=== PATIENT | female | born 1930 | race Caucasian/White ===

== ENCOUNTER 2018-12-27 06:44 | Day surgery (SDC) | payer MEDICARE, OTHER ==
[~2018-12-27] VITALS: Ht 160 cm; Wt 61.9 kg
[~2018-12-27 06:44] MED LIST: ASPI81CH PO; ASPI81EC PO; CIPR500; CIPR500 PO; HYDACE5 PO; IBUP800 PO; LO-DOSE ASPIRIN81 MG PO; LORA.5 PO; MECL25 PO; METO25ER PO; METO50 PO; MIRALAX17 GM PO; MULVITA PO; OMEG1CAP30 PO; Toprol Xl50 MG PO; VITAMENS; VITAMINS
== END 2018-12-27 10:20 | disposition home or self-care (01) ==
LOC: ORSCSDS 06:44
PROVIDERS: Podiatrist Foot & Ankle Surgery
PROC: 0SGN04Z Fusion of Left Metatarsal-Phalangeal Joint with Internal Fixation Device, Open Approach (ICD-10-PCS; principal; 2018-12-27 08:30)
DX: M20.12 Hallux valgus (acquired), left foot (principal); I10 Essential (primary) hypertension; I49.9 Cardiac arrhythmia, unspecified; Z79.899 Other long term (current) drug therapy; Z79.82 Long term (current) use of aspirin
CPT/HCPCS: C1713; C1769; J0690; J2370; J2405; J2704; J3010

== ENCOUNTER 2018-12-27 21:22 | Emergency (ER) | payer MEDICARE, OTHER ==
[~2018-12-27] VITALS: Ht 167.6 cm; Wt 63.5 kg
[2018-12-27 22:24] LABS: BASOPHILS ABSOLUTE AUTO 0.06 K/mm3 (0.00-0.23); BASOPHILS PERCENT AUTO 1 % (0-2); EOSINOPHILS ABSOLUTE AUTO 0.04 K/mm3 (0.00-0.68); EOSINOPHILS PERCENT AUTO 0 % (0-6); Hematocrit 39.3 % (33.0-51.0); Hemoglobin 12.8 g/dL (11.5-16.0); IMMATURE GRAN ABSOLUTE AUTO 0.03 K/mm3 (0.00-0.10); IMMATURE GRAN PERCENT AUTO 0 % (0-1); LYMPHOCYTES ABSOLUTE AUTO 1.82 K/mm3 (0.84-5.20); LYMPHOCYTES PERCENT AUTO 20 % (21-46); MONOCYTES ABSOLUTE AUTO 0.96 K/mm3 (0.16-1.47); MONOCYTES PERCENT AUTO 11 % (4-13); Mean Corpuscular HGB 30.8 pg (26.0-34.0); Mean Corpuscular HGB Conc 32.6 g/dL (31.5-36.5); Mean Corpuscular Volume 95 fL (80-100); Mean Platelet Volume 10.7 fL (9.1-12.4); NEUTROPHILS ABSOLUTE AUTO 6.26 K/mm3 (1.96-9.15); NEUTROPHILS PERCENT AUTO 68 % (41-73); Platelet Count 245 K/mm3 (150-400); RDW Coefficient Variation 12.7 % (11.7-14.2); RDW Standard Deviation 44.2 fL (35.1-46.3); Red Blood Cell Count 4.15 M/mm3 (3.80-5.20); White Blood Cell Count 9.17 K/mm3 (4.00-11.30)
[2018-12-27 22:25] LABS: Source, Urine Catheter
[2018-12-27 22:29] LABS: Appearance, Urine Clear (Clear); Bilirubin, Urine Neg (Neg); Blood, Urine Neg (Neg); Color, Urine Pale Yellow (P-Yellow); Glucose Qualitative, Urine Neg (Neg); Ketones, Urine Neg (Neg); Leukocyte Esterase, Urine Neg (Neg); Nitrite, Urine Neg (Neg); Protein, Urine Neg (Neg); Urobilinogen, Urine NORM (Normal)
[2018-12-27 22:32] LABS: Bun/Creatinine Ratio 12.9 (12.0-20.0); Calcium, Blood 9.3 mg/dL (8.5-10.1); Creatinine, Blood 1.01 mg/dL (0.40-1.00); Potassium, Blood 4.2 mmol/L (3.5-5.5)
== END 2018-12-28 00:15 | disposition home or self-care (01) ==
LOC: ER 21:22
PROVIDERS: Emergency Medicine
DX: R33.9 Retention of urine, unspecified (principal); Z88.2 Allergy status to sulfonamides; Z79.899 Other long term (current) drug therapy
CPT/HCPCS: 36415; 51702; 80048; 81003; 85025; 93005; 93010; 96361-59; 96374-59; 99283-25; A9270-GY; J3010; J7030

== ENCOUNTER 2019-05-13 18:45 | Inpatient (IN) | payer MEDICARE, OTHER ==
[~2019-05-13] VITALS: Ht 160 cm; Wt 61.6 kg
[2019-05-13] MEDS ORDERED: Aspir 8181 MG PO (19:42)
[2019-05-13 19:52] LABS: BASOPHILS ABSOLUTE AUTO 0.04 K/mm3 (0.00-0.23); BASOPHILS PERCENT AUTO 1 % (0-2); EOSINOPHILS PERCENT AUTO 0 % (0-6); Hematocrit 38.7 % (33.0-51.0); IMMATURE GRAN ABSOLUTE AUTO 0.02 K/mm3 (0.00-0.10); IMMATURE GRAN PERCENT AUTO 0 % (0-1); LYMPHOCYTES ABSOLUTE AUTO 0.57 K/mm3 (0.84-5.20); LYMPHOCYTES PERCENT AUTO 7 % (21-46); MONOCYTES ABSOLUTE AUTO 0.88 K/mm3 (0.16-1.47); MONOCYTES PERCENT AUTO 10 % (4-13); Mean Corpuscular HGB 31.2 pg (26.0-34.0); Mean Corpuscular HGB Conc 33.6 g/dL (31.5-36.5); Mean Corpuscular Volume 93 fL (80-100); Mean Platelet Volume 10.4 fL (9.1-12.4); NEUTROPHILS ABSOLUTE AUTO 6.92 K/mm3 (1.96-9.15); NEUTROPHILS PERCENT AUTO 82 % (41-73); Platelet Count 249 K/mm3 (150-400); RDW Coefficient Variation 13.1 % (11.7-14.2); RDW Standard Deviation 44.6 fL (35.1-46.3); Red Blood Cell Count 4.17 M/mm3 (3.80-5.20); White Blood Cell Count 8.43 K/mm3 (4.00-11.30)
[2019-05-13 20:10] LABS: International Normalized Ratio 0.92; Prothrombin Time Results 9.8 Sec (9.7-11.5)
[2019-05-13 20:23] LABS: Alanine Aminotransfer (ALT/SGP 21 U/L (12-78); Albumin, Blood 3.4 g/dL (3.4-5.0); Albumin/Globulin Ratio 0.9 (0.8-1.8); Alk Phos 97 U/L (50-136); Anion Gap 3 mmol/L (6-16); Aspartate Aminotrans (AST/SGOT 24 U/L (12-37); Bilirubin, Total 0.6 mg/dL (0.1-1.0); Blood Urea Nitrogen 17 mg/dL (8-24); Bun/Creatinine Ratio 25.7 (12.0-20.0); CO2, Blood 27 mmol/L (21-32); Calcium, Blood 9.3 mg/dL (8.5-10.1); Chloride, Blood 109 mmol/L (98-108); Creatinine, Blood 0.66 mg/dL (0.40-1.00); Globulin, Blood 3.7 g/dL (2.2-4.0); Glomerular Filtration Rate >60 (60-); Glucose, Blood 132 mg/dL (70-99); Potassium, Blood 3.7 mmol/L (3.5-5.5); Sodium, Blood 139 mmol/L (136-145); Total Protein, Blood 7.1 g/dL (6.4-8.2)
[2019-05-13 21:07] LABS: Source, Urine Catheter
[2019-05-13 21:11] LABS: Bilirubin, Urine Neg (Neg); Blood, Urine 3+ (Neg); Glucose Qualitative, Urine Neg (Neg); Ketones, Urine Neg (Neg); Leukocyte Esterase, Urine 3+ (Neg); Nitrite, Urine Neg (Neg); Protein, Urine 2+ (Neg); Specific Gravity, Urine 1.015 (1.003-1.022); Urobilinogen, Urine NORM (Normal)
[2019-05-13 21:18] LABS: Appearance, Urine Hazy (Clear); Color, Urine Yellow (P-Yellow)
[2019-05-13 21:19] LABS: White Blood Cells, Urine TNTC /hpf (0-5)
[2019-05-13 21:21] LABS: Bacteria Many /hpf; Squamous Epithelial Cells Few /hpf (Few)
[2019-05-13] MEDS ORDERED: Fish Oil 10001000 MG PO (21:56)
[2019-05-13] MEDS ORDERED: Vitamin D2000 UNIT PO (21:56)
--- NOTE | 2019-05-13 22:14 | NUR ---
transfer report from [facility] on 88 year old PT being admitted to DR Drake with UTI , URI and fever. HX of cardiac ablation will be on Tele monitor . reportedly lives alone, recent travel to [facility]. Green sputum UTI despite tx EColi UTI 04/25/19. Await admission .
[2019-05-13] MEDS ORDERED: MIRALAX17 GM PO (23:06)
[2019-05-13] MEDS ORDERED: AKWA Tears15 ML BOTHEYES (23:09)
[2019-05-13] MEDS ORDERED: NAPR220 PO (23:10)
--- NOTE | 2019-05-14 02:35 | NUR ---
88 year old Female who has recent EColi uti 04/25/19 UA with C & S completed oral antibiotics to treat. She has recent travel to [facility] and [place] and felt fine during travel. She felt ill and had productive cough and temp 101.4 at ER after going to urgent care to be examined. She lives independent has adult children supportive in area. She drives and may use walking stick but has weakness and SOB. Oxygen 2 l nc and hacking harsh cough. Dr Drake PT PT on tel SR with 1st degree AV block. 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 She is on IV fluids at 75 ml HR. Full code status verified.
[2019-05-14 09:48] LABS: Adenovirus Not Detected (NOT DETECT); Bordetella pertussis Not Detected (NOT DETECT); Chlamydophila pneumoniae Not Detected (NOT DETECT); Coronavirus 229E Not Detected (NOT DETECT); Coronavirus HKU1 Not Detected (NOT DETECT); Coronavirus NL63 Not Detected (NOT DETECT); Coronavirus OC43 Not Detected (NOT DETECT); Human Metapneumovirus Not Detected (NOT DETECT); Human Rhinovirus/Enterovirus Detected (NOT DETECT); Influenza A Not Detected (NOT DETECT); Influenza A/2009-H1 Not Detected (NOT DETECT); Influenza A/H1 Not Detected (NOT DETECT); Influenza A/H3 Not Detected (NOT DETECT); Influenza B Not Detected (NOT DETECT); Mycoplasma pneumoniae Not Detected (NOT DETECT); Parainfluenza Virus 1 Not Detected (NOT DETECT); Parainfluenza Virus 2 Not Detected (NOT DETECT); Parainfluenza Virus 3 Not Detected (NOT DETECT); Parainfluenza Virus 4 Not Detected (NOT DETECT); Respiratory Syncytial Virus Not Detected (NOT DETECT)
--- NOTE | 2019-05-14 18:15 | NUR ---
SHIFT SUMMARY MULTIPLE FRIENDS AND FAMILY TO VISIT TODAY. [employer] STANDBY ASSIST WITH BRP. C/O RIB PAIN DUE TO COUGHING. PAIN MEDICATION GIVEN AND EFFECTIVE. BOWEL CARE STARTED TODAY. REFUSED PREVNAR. TELE NSR. ROOM AIR. PLEASANT CALM. GOOD URINE OUTPUT TODAY.
--- NOTE | 2019-05-15 00:33 | NUR ---
PATIENT STATING HIGH 80'S PER RT AND WAS PUT BACK ON 2L O2 NC.
--- NOTE | 2019-05-15 03:43 | NUR ---
SHIFT SUMMARY PATIENT HAD NO ACUTE CHANGES OBSERVED. AXOX 3 AND SBA TO BSC. RT PUT PATIENT ON 2L O2 NC AFTER STATING IN THE HIGH 80'S. BREATHING TX BY RT. OUT OF DROPLET PRECAUTIONS. PIV REMAINS INTACT. IV ABX INFUSED. INSTRUCTIONAL SUPPORT ASSISTANT REPORTED ST 111 W/1ST DEGREE. DAUGHTER PRESENT FIRST PART OF SHIFT. REPORTED BILATERAL RIB PAIN FROM COUGH AND RECEIVED 0.5 TAB OF NORCO 5/325 PER EMAR. CALL LIGHT IN REACH. BED IN LOWEST POSITION. WILL CONTINUE TO MONITOR UNTIL DAY SHIFT NURSE ASSUMES CARE.
--- NOTE | 2019-05-15 10:40 | NUR ---
Pt resting in bed upon arrival and reports a tolerable 4/10 pain in her rib when coughing. Pt reports mild dyspnea as well but states oxygen is helping. Raised head of bed and instructed on splinting when coughing. Pt and daughter report completing advanced directive. Answered questions and educated on sections to complete. Pt and daughter report understanding of life sustaining measures and request a notary. Called and left message with Shazia requesting notary for Pt. Other notary Ene not available today. Spoke with bedside nurse Melissa and discussed case. Palliative Care will remain available.
[2019-05-15 15:14] LABS: BASOPHILS ABSOLUTE AUTO 0.04 K/mm3 (0.00-0.23); BASOPHILS PERCENT AUTO 0 % (0-2); EOSINOPHILS PERCENT AUTO 0 % (0-6); Hematocrit 34.2 % (33.0-51.0); Hemoglobin 11.3 g/dL (11.5-16.0); IMMATURE GRAN ABSOLUTE AUTO 0.03 K/mm3 (0.00-0.10); IMMATURE GRAN PERCENT AUTO 0 % (0-1); LYMPHOCYTES ABSOLUTE AUTO 0.77 K/mm3 (0.84-5.20); LYMPHOCYTES PERCENT AUTO 8 % (21-46); MONOCYTES PERCENT AUTO 9 % (4-13); Mean Corpuscular Volume 94 fL (80-100); Mean Platelet Volume 10.9 fL (9.1-12.4); NEUTROPHILS ABSOLUTE AUTO 7.85 K/mm3 (1.96-9.15); NEUTROPHILS PERCENT AUTO 82 % (41-73); Platelet Count 230 K/mm3 (150-400); RDW Coefficient Variation 13.2 % (11.7-14.2); RDW Standard Deviation 46.2 fL (35.1-46.3); Red Blood Cell Count 3.64 M/mm3 (3.80-5.20); White Blood Cell Count 9.59 K/mm3 (4.00-11.30)
[2019-05-15 15:30] LABS: Anion Gap 6 mmol/L (6-16); Blood Urea Nitrogen 9 mg/dL (8-24); Bun/Creatinine Ratio 17.3 (12.0-20.0); CO2, Blood 27 mmol/L (21-32); Calcium, Blood 8.6 mg/dL (8.5-10.1); Chloride, Blood 106 mmol/L (98-108); Creatinine, Blood 0.52 mg/dL (0.40-1.00); Glomerular Filtration Rate >60 (60-); Glucose, Blood 142 mg/dL (70-99); Potassium, Blood 4.5 mmol/L (3.5-5.5); Sodium, Blood 139 mmol/L (136-145)
--- NOTE | 2019-05-15 18:28 | NUR ---
PATIENT HAS BEEN ENCOURAGED TO KEEP FLUIDS UP THIS SHIFT SHE HAS NOT WANTED TO EAT. PATIENT ON 2 L O2 AND CONTINUES WITH STRIDOR COUGH. NOT BEEN ABLE TO COUGH UP SAMPLE REQUESTED. DAUGHTERS AT BEDSIDE. PATIENT ENCOURAGED AND ABLE TO SIT IN CHAIR WHICH SEEMED TO HELP WITH COUGHING. NO PAINMEDS GIVEN. PATIENT IS ALERT AND ABLE TO EXPRESS ANY NEEDS. CALL LIGHT WITHIN REACH.
--- NOTE | 2019-05-16 03:34 | NUR ---
SHIFT SUMMARY PATIENT HAD NO ACUTE CHANGES. AXOX 3 AND SBA TO BR. FAMILY PRESENT T/O SHIFT. ON 2L O2 N/C. RT IN FOR BREATHING TX. PATIENT REPORTED COUGH X 2 AND TESSALON 100 MG GIVEN PER EMAR. ARCE X ONE AND TYLENOL GIVEN PRN. REPORTED RIB PAIN FROM COUGH AND HALF TAB OF NORCO GIVEN PRN. FAMILY/PATIENT REPORTED HER TO STAY IN CHAIR TO SLEEP WITH LIMITED RESULTS. VSS/AFEBRILE. CALL LIGHT IN REACH. BED IN LOWEST POSITION. WILL CONTINUE TO MONITOR UNTIL DAY SHIFT NURSE ASSUMES CARE.
[2019-05-16 06:28] LABS: BASOPHILS ABSOLUTE AUTO 0.04 K/mm3 (0.00-0.23); BASOPHILS PERCENT AUTO 1 % (0-2); EOSINOPHILS ABSOLUTE AUTO 0.02 K/mm3 (0.00-0.68); EOSINOPHILS PERCENT AUTO 0 % (0-6); Hematocrit 32.4 % (33.0-51.0); Hemoglobin 10.6 g/dL (11.5-16.0); IMMATURE GRAN ABSOLUTE AUTO 0.02 K/mm3 (0.00-0.10); IMMATURE GRAN PERCENT AUTO 0 % (0-1); LYMPHOCYTES PERCENT AUTO 10 % (21-46); MONOCYTES ABSOLUTE AUTO 0.76 K/mm3 (0.16-1.47); MONOCYTES PERCENT AUTO 10 % (4-13); Mean Corpuscular HGB 30.5 pg (26.0-34.0); Mean Corpuscular HGB Conc 32.7 g/dL (31.5-36.5); Mean Corpuscular Volume 93 fL (80-100); Mean Platelet Volume 11.3 fL (9.1-12.4); NEUTROPHILS ABSOLUTE AUTO 6.36 K/mm3 (1.96-9.15); NEUTROPHILS PERCENT AUTO 79 % (41-73); Platelet Count 227 K/mm3 (150-400); RDW Coefficient Variation 13.3 % (11.7-14.2); RDW Standard Deviation 45.2 fL (35.1-46.3); Red Blood Cell Count 3.47 M/mm3 (3.80-5.20)
[2019-05-16 06:38] LABS: Albumin, Blood 2.6 g/dL (3.4-5.0); Anion Gap 5 mmol/L (6-16); Blood Urea Nitrogen 7 mg/dL (8-24); Bun/Creatinine Ratio 11.7 (12.0-20.0); CO2, Blood 27 mmol/L (21-32); Calcium, Blood 8.6 mg/dL (8.5-10.1); Chloride, Blood 107 mmol/L (98-108); Glomerular Filtration Rate >60 (60-); Glucose, Blood 109 mg/dL (70-99); Phosphorus, Blood 3.1 mg/dL (2.5-4.9); Potassium, Blood 4.3 mmol/L (3.5-5.5); Sodium, Blood 139 mmol/L (136-145)
[2019-05-16 09:36] LABS: Percent Saturation 22.8 % (15.0-50.0)
[2019-05-16 14:44] LABS: Stool Occult Blood Guaiac 1 Neg (Neg)
--- NOTE | 2019-05-16 14:53 | NUR ---
Visited with pt and her dtr this afternoon as a follow up to PC nurse visit yesterday re: AD. Pt has filled out AD and signed in the presence of two non-family member witnesses. Pt is waiting for another dtr to sign the form and then they will have staff copy AD for her EMR. Pt reports not being able to lay flat to sleep yet. Also c/o coughing at night which doesn't allow her to rest. Reviewed EMAR and educated pt on new order for tessalon perles which is scheduled to start this afternoon. Pt education given. Will recheck pt tomorrow to see if the med change helps her to sleep tonight. May consider alternate anti-tussive therapy if tessalon perles do not work for her. Encouraged PO fluid intake to thin secretions. No further questions at this time. Pt sitting up in chair and states she feels better than she did yesterday.
--- NOTE | 2019-05-16 16:50 | NUR ---
PATIENT DOING MUCH BETTER TODAY THAN PREVIOUS SHIFT. SHE HAS BEEN UP WALKING THE HALLS WITH FAMILY. APPETITE HAS IMPROVED AND SHE IS TAKING IN MORE FLUIDS PO. HER COUGH HAS LESSENED GREATLY AND HER ATTITUDE HAS IMPROVED. SHE IS ABLE TO COMMUNICATE HER NEEDS AND USES CALL LIGHT APPROPRIATLEY. PATIENT IS CONTINENT OF BB. NO SKIN BREAKDOWN NOTED. PATIENT HAS LESS COUGHING EPISODES WHEN UPRIGHT IN CHAIR. FAMILY PRESENT.
--- NOTE | 2019-05-17 03:42 | NUR ---
SHIFT SUMMARY PT IS ALERT ORIENTED AND INDEPENDENT IN THE ROOM SO LONG FAMILY IS PRESENT. PT'S O2 DESATTED TO HIGH 80S, AND 2L NC WAS APPLIED. PT ALSO HAS PERSISTENT COUGH. THIS RN POST VOID BLADDER SCANNED THE PT AND FOUND OVER 700ML RETAINED. PT WAS STRAIGHT CATHED AND 1000ML WAS REMOVED. PT DIDN'T COMPLAIN OF URINARY DISCOMFORT THROUGHOUT. NO OTHER COMPLAINTS AT THIS TIME. WILL CONITNUE TO MONITOR.
--- NOTE | 2019-05-17 12:20 | NUR ---
Met with pt this morning. She is awake and states that she did not sleep well again last night with the cough medication that was added yesterday. She reports that the doctor visited this morning and is planning to add a different cough medicine that will also help her sleep. AD was signed by daughters, pt and witnesses yesterday. Copy of her AD made for her chart. Will send to MR for scanning into the EMR. No other complaints at this time. She is sitting up in her bed eating lunch during the time of my visit.
--- NOTE | 2019-05-17 18:35 | NUR ---
SHE TRIED TO VOID LATE MORNING WHEN ASKED. SHE DID NOT HAVE THE INKLING TO GO. SHE COULD NOT. BLADDER SCAN AT THAT TIME WAS JUST OVER 500. LATER SHE VOIDED WHEN I ASKED HER TO TRY. SHE VOIDED 400 MLS THEN BLADDER SCAN SHOWED 626 MLS[address] I SOON AFTER ST. CATHED HER FOR 675 MLS. SHE WAS DISCOURAGED. SHE HAS HAD A COUGH ALL DAY. IT IS NON-PRODUCTIVE. CONSULTED ON HER. ROBITUSSEN WITH CODEINE WAS ORDERED. I DO THINK IT HAS CALMED HER COUGH A BIT. O2 WAS AT 2L, LATER OFF FOR ABOUT 5 HRS, THEN RESUMED WHEN HER SAT FELL TO 87-89%. SHE HAS C/O HEARTBURN TODAY WITH EATING. ORDERED PRILOSEC SCHEDULED AND TUMS PRN. PRILOSEC, FLOMAX AND PREDNISONE STARTED THIS SHIFT. TELE NSR WITH 1ST DEGREE BLOCK. CXR DONE AND SHE HAS BEEN AFEBRILE. SHE HAD A BM THIS AM AND HAS REMAINED IN DROPLET ISOLATION FOR RHINO VIRUS.
--- NOTE | 2019-05-18 05:47 | NUR ---
SHIFT SUMMARY PT IS ALERT, ORIENTED AND INDEPENDENT. 2 L NC WAS APPLIED TO PT EARLY IN THE SHIFT DUE TO A O2 SATURATION OF 87%. PT HAD AN EPISODE OF SOB AFTER WAKING UP FROM A DEEP SLEEP. PT'S VS WERE STABLE THROUGHOUT. A BREATHING TREATMENT WAS GIVEN AND PT'S BREATHING IMPROVED. LUNGS STILL HAVE RHONCHI AND EXP WHEEZES IN THE LOWER BASES HOWEVER. PT WAS BLADDER SCANNED THROUGHOUT SHIFT. PT MET THE CRITERIA FOR STRAIGHT CATH ONCE AND 950ML WAS REMOVED. CURRENTLY PT IS SITTING UP IN THE CHAIR WITHOUT DISTRESS, WEARING 2 L NC. NO CURRENT COMPLAINTS. WILL CONTINUE TO MONITOR.
--- NOTE | 2019-05-18 08:39 | NUR ---
SHE IS UP IN THE CHAIR FOR BREAKFAST.
--- NOTE | 2019-05-18 13:52 | NUR ---
SHE HAS TRIED TO VOID X2 BUT WAS UNABLE. BLADDER SCAN SHOWS 599 MLS. SHE HAS RECEIVED A SECOND DOSE OF COUGH SYRUP THIS SHIFT AND IS TRYING TO TAKE A NAP NOW. SHE HAS NEEDED HER O2 TODAY. I HAD HER AMBULATE ON RA WITH A BIOX ON. SHE WAS 86 TO 89%. I LET HER KNOW SHE WILL NEED TO AMBULATE WITH O2 IN THE FUTURE. HER DAUGHTER HAS GONE HOME. I WILL F/U ON HER BLADDER RETENTION THIS AFTERNOON.
--- NOTE | 2019-05-18 15:08 | NUR ---
ROUNDED ON HER. SHE IS CURRENTLY ASLEEP.
--- NOTE | 2019-05-18 18:23 | NUR ---
ROUNDED AGAIN LATE THIS AFTERNOON. ORDER RECEIVED TO PLACE QUIROS CATHETER. HER BLADDER WAS EMPTIED BY ST.CATH AT 1615 SHORTLY BEFORE HE ARRIVED. WILL PASS ON TO DOUGH MIXING MACHINE OPERATOR TO PLACE QUIROS THIS EVENING. HER FEW ATTEMPTS TODAY TO VOID WERE UNSUCCESSFUL. SHE AMBULATED THE BISHOP AND WILL AGAIN WHEN SHE FINISHES DINNER, THIS TIME WITH O2. IT IS AT 1L CURRENTLY. COUGH MEDICINE GIVEN X3 TODAY,TUMS X1, AND HYDROCODONE X1. DROPLET ISOLATION CONTINUES FOR RHINO VIRUS. MSG LEFT FOR INFECTION CONTROL TOMORROW TO LOOK INTO THE POLICY.
--- NOTE | 2019-05-19 04:20 | NUR ---
SHIFT SUMMARY PT HAD A DECENT SHIFT. PT WORE 1L NC WHEN AT REST AND TOLERATED IT WELL. PT TOLERATED QUIROS INSERTION WELL. BREATHING TREATMENTS AND PRN MEDS WERE GIVEN NEEDED. NO OTHER COMPLAINTS AT THIS TIME. WILL CONTINUE TO MONITOR.
[2019-05-19 06:47] LABS: BASOPHILS ABSOLUTE AUTO 0.01 K/mm3 (0.00-0.23); BASOPHILS PERCENT AUTO 0 % (0-2); EOSINOPHILS PERCENT AUTO 0 % (0-6); Hematocrit 32.5 % (33.0-51.0); Hemoglobin 10.4 g/dL (11.5-16.0); IMMATURE GRAN ABSOLUTE AUTO 0.19 K/mm3 (0.00-0.10); IMMATURE GRAN PERCENT AUTO 2 % (0-1); LYMPHOCYTES ABSOLUTE AUTO 1.28 K/mm3 (0.84-5.20); LYMPHOCYTES PERCENT AUTO 15 % (21-46); MONOCYTES ABSOLUTE AUTO 0.77 K/mm3 (0.16-1.47); MONOCYTES PERCENT AUTO 9 % (4-13); Mean Corpuscular HGB 30.1 pg (26.0-34.0); Mean Corpuscular Volume 94 fL (80-100); Mean Platelet Volume 10.4 fL (9.1-12.4); NEUTROPHILS ABSOLUTE AUTO 6.23 K/mm3 (1.96-9.15); NEUTROPHILS PERCENT AUTO 74 % (41-73); Platelet Count 262 K/mm3 (150-400); RDW Coefficient Variation 13.4 % (11.7-14.2); RDW Standard Deviation 45.9 fL (35.1-46.3); Red Blood Cell Count 3.45 M/mm3 (3.80-5.20); White Blood Cell Count 8.48 K/mm3 (4.00-11.30)
[2019-05-19 07:03] LABS: Alanine Aminotransfer (ALT/SGP 67 U/L (12-78); Albumin, Blood 2.5 g/dL (3.4-5.0); Albumin/Globulin Ratio 0.8 (0.8-1.8); Alk Phos 87 U/L (50-136); Anion Gap 5 mmol/L (6-16); Aspartate Aminotrans (AST/SGOT 63 U/L (12-37); Bilirubin, Total 0.1 mg/dL (0.1-1.0); Blood Urea Nitrogen 18 mg/dL (8-24); Bun/Creatinine Ratio 28.8 (12.0-20.0); CO2, Blood 27 mmol/L (21-32); Calcium, Blood 8.8 mg/dL (8.5-10.1); Chloride, Blood 108 mmol/L (98-108); Creatinine, Blood 0.63 mg/dL (0.40-1.00); Globulin, Blood 3.2 g/dL (2.2-4.0); Glomerular Filtration Rate >60 (60-); Glucose, Blood 108 mg/dL (70-99); Potassium, Blood 4.4 mmol/L (3.5-5.5); Sodium, Blood 140 mmol/L (136-145); Total Protein, Blood 5.7 g/dL (6.4-8.2)
--- NOTE | 2019-05-19 15:22 | NUR ---
PATIENT HAS HAD AN UNEVENTFUL DAY. CHRONIC PAIN TO HER LEFT HIP CONTINUES AND SEEMS TO BE FAIRLY CONTROLLED BY PAIN MEDICATION. CONTINUES ON IV ABX WITHOUT S/SX OF ADVERSE REACTIONS. SEVERAL FAMILY MEMBERS AND VISITORS TO SEE THE PATIENT TODAY. WILL CONTINUE TO MONITOR AND PROVIDE CARE NEEDED.
--- NOTE | 2019-05-20 05:43 | NUR ---
Pt continue on oxygen 2 l nc and has coarse rhoncerous breath sounds throughout. Has moist hacking harsh cough. Mediccated x 2 with robitiussan with codeine and had helpful effect. Medicated x 2 for lt hip and rib pain aggravated by coughing. She has supportive family. amb in halls with standby assist. Cohn cath patent drains large amts clear yellow urine. UA C & S shows ECOLI UTI this admission. ON antibiotic to tx UTI, on steroids for URI Rhinovirus.
--- NOTE | 2019-05-20 17:00 | NUR ---
PT. STILL HAS A VERY HARSH PRODUCTIVE COUGH WITH THICK BUNN SPUTUM. PT. HAS DENIED NEED OF PAIN MEDS T/O THE SHIFT. VERY SOB WHEN UP MOVING AROUND. A&O, PLEASANT AND COOPERATIVE. PT. SAYS SHE'S WORE OUT FROM THE COUGHING, THE COUGH SYRUP ONLY LASTS FOR ABOUT AN HOUR. WITHOUT OXYGEN THIS AM PT'S O2 WAS 89% WHILE SITTING IN BED. ENCOURAGED USE OF THE FLUTTER VALVE. RT TO DO A HOME O2 EVAL TONIGHT OR IN THE AM.
--- NOTE | 2019-05-21 07:40 | NUR ---
PT. UP IN RECLINER AT BEDSIDE. DENIES PAIN OR NAUSEA BUT VISIBLY SOB, PRESENTING WITH COUGH.
[2019-05-21] MEDS ORDERED: ACET325 PO (08:22)
[2019-05-21] MEDS ORDERED: ALBU2.5V5 INH (08:23)
[2019-05-21] MEDS ORDERED: BENZ100A PO (08:23)
[2019-05-21] MEDS ORDERED: CODEINE-GUAIFE120 ML PO (08:25)
[2019-05-21] MEDS ORDERED: DOCU100 PO (08:26)
[2019-05-21] MEDS ORDERED: Prednisone10 MG PO (08:28)
--- NOTE | 2019-05-21 16:45 | NUR ---
PT. DISCHARGED HOME WITH DAUGHTER. RAJNI BROUGHT OXYGEN TO WEAR HOME AND WILL DELIVER THE NEBULIZER AND HOME O2 AFTER PT. ARRIVES HOME.
== END 2019-05-21 16:52 | disposition home health service (06) | DRG 193 ==
LOC: ER 18:45 → MEDS 18:46
PROVIDERS: Internal Medicine; Physician Assistant; ADMIT Internal Medicine
DX: J12.9 Viral pneumonia, unspecified (principal); J96.01 Acute respiratory failure with hypoxia; N39.0 Urinary tract infection, site not specified; J44.0 Chronic obstructive pulmonary disease with (acute) lower respiratory infection; B96.20 Unspecified Escherichia coli [E. coli] as the cause of diseases classified elsewhere; J20.9 Acute bronchitis, unspecified; Z87.440 Personal history of urinary (tract) infections; D64.9 Anemia, unspecified; E78.2 Mixed hyperlipidemia; Z88.2 Allergy status to sulfonamides
CPT/HCPCS: 0099U; 36415; 51701; 51702; 71046; 80048; 80053; 80069; 81001; 82272; 82728; 83540; 83550; 83605; 85025; 85610; 85730; 87040; 87070; 87077; 87086; 87186; 87205; 90670; 92526; 92610; 93005; 93010; 94640; 94667; 94668; 94760; 94761; 96365; 99285-25; A9270; A9270-GY; C1751; G0378; J0456; J0696; J1650; J2543; J2930; J7030; J7050; J7512

== ENCOUNTER → 2019-07-05 | Outpatient (CLI) | payer MEDICARE, OTHER ==
[~2019-07-05] MED LIST changes: +ACET325 PO; +AKWA Tears15 ML BOTHEYES; +ALBU2.5V5 INH; +Aspir 8181 MG PO; +BENZ100A PO; +CODEINE-GUAIFE120 ML PO; +DOCU100 PO; +Fish Oil 10001000 MG PO; +NAPR220 PO; +Prednisone10 MG PO; +Vitamin D2000 UNIT PO
== END | disposition home or self-care (01) ==
LOC: LAB EV 13:29 → LAB SHORT 13:29
DX: N39.0 Urinary tract infection, site not specified (principal)
CPT/HCPCS: 87077; 87086; 87186

== ENCOUNTER → 2019-10-20 | Outpatient (CLI) | payer MEDICARE, OTHER | END | disposition home or self-care (01) | LOC: PLD 11:23 → LAB SHORT 11:23 | DX: D22.5 Melanocytic nevi of trunk (principal) | CPT/HCPCS: 88305 ==